=== PATIENT | female | born 1945 | race Caucasian/White ===

== ENCOUNTER 2017-08-29 18:01 | Observation (INO) | payer BC ==
[~2017-08-29] VITALS: Ht 167.6 cm; Wt 77.6 kg
[~2017-08-29 18:01] MED LIST: ALLOPURINOL100 MG PO; AMLODIPINE5 MG PO; ASPIRIN EC325 MG PO; ATORVASTATIN CA20 MG PO; BIOTIN5000 MC1 PO; BUPROPION150 M4 PO; CALCIUM PO; CILOSTAZOL100 MG PO; CLOPIDOGREL75 MG PO; FISH OIL1000 MG PO; LEVOTHYROXIN88 MC1 PO; LISINOPRIL20 MG PO; METOPROLOL TART50 MG PO; PREVACID30 M3 PO; PRILOSEC20 MG OR; [UNRECOGNIZED DRUG - OTHER] PO
[2017-08-29] MEDS ORDERED: ZETIA10 MG PO (18:34)
[2017-08-29] MEDS ORDERED: OXYCODONE HCL5 MG PO (18:35)
[2017-08-29 19:02] LABS: URINE BILIRUBIN - DIPSTICK NEGATIVE (NEGATIVE); URINE BLOOD DIPSTICK NEGATIVE (NEGATIVE); URINE COLOR YELLOW; URINE GLUCOSE - DIPSTICK NEGATIVE (NEGATIVE); URINE KETONE NEGATIVE (NEGATIVE); URINE LEUK ESTERASE NEGATIVE (NEGATIVE); URINE NITRITE - DIPSTICK NEGATIVE (Negative); URINE PROTEIN - DIPSTICK NEGATIVE (NEG-TRACE); URINE UROBILINOGEN - DIPSTICK 0.2 E.U./dL (0.2)
[2017-08-29 19:02] LABS: HEMATOCRIT 40.6 % (37.0-47.0); HEMOGLOBIN 13.5 g/dl (12.0-16.0); IMMATURE GRANULOCYTES 0.7 % (0.0-1.0); MEAN CELL VOLUME 85.3 fL CALC (80.0-100.0); MEAN CORPUSCULAR HGB 28.4 pG CALC (26.0-32.0); MEAN CORPUSCULAR HGB CONC 33.3 g/L CALC (32.0-36.0); NEUT# 8.78 thou/uL (2.00-7.15); RED BLOOD COUNT 4.76 mill/uL (4.20-5.60); RED CELL DISTRI WIDTH 14.2 % (11.5-15.5)
[2017-08-29 19:03] LABS: URINE CLARITY SL CLOUDY
[2017-08-29 19:10] LABS: ALBUMIN 4.6 g/dL (3.2-5.0); ALKALINE PHOSPHATASE 100 u/l (38-126); ANION GAP 13 (6-22 (CALC)); BILIRUBIN, TOTAL 0.6 mg/dL (0.0-1.4); BUN 20 mg/dL (8-23); BUN/CREATININE RATIO 27 (12-20 (CALC)); CARBON DIOXIDE 24 mmol/l (22-30); CHLORIDE 107 mmol/l (95-108); CREATININE 0.7 mg/dL (0.5-1.0); GFR > 60 ML/MIN (>=60 (CALC)); GFR FOR AFR.AMER. > 60 ML/MIN (>=60 (CALC)); LIPASE 81 u/l (23-300); POTASSIUM 4.2 mmol/l (3.5-5.1); SGOT/AST 39 u/l (9-36); SGPT/ALT 40 u/l (11-66); SODIUM 140 mmol/l (137-146)
[2017-08-29 19:11] LABS: TOTAL PROTEIN 7.9 g/dL (6.3-8.2)
[2017-08-29 19:22] LABS: MYOGLOBIN 26 ng/mL (0 - 62)
[2017-08-29 23:00] VITALS: BP 150/83
[2017-08-30 04:43] VITALS: BP 109/92
[2017-08-30 06:48] LABS: CHOLESTEROL HDL RATIO 1.9 (<4.4 (CALC))
[2017-08-30 08:18] VITALS: BP 117/65
[2017-08-30 12:32] VITALS: BP 115/50
[2017-08-30 16:00] VITALS: BP 100/51
[2017-08-30 20:05] VITALS: BP 97/53
[2017-08-31 00:18] VITALS: BP 94/56
[2017-08-31 04:25] VITALS: BP 103/52
[2017-08-31 08:47] VITALS: BP 104/51
[2017-08-31 12:00] VITALS: BP 102/55
== END 2017-08-31 15:20 | disposition home or self-care (01) | DRG 392 ==
LOC: ED 18:01 → ED-I 20:35 → ED 20:55 → MS2 20:56
PROVIDERS: Emergency Medicine; ADMIT Internal Medicine; ATTEND Internal Medicine
DX: R10.11 Right upper quadrant pain (principal); R10.13 Epigastric pain; N28.1 Cyst of kidney, acquired; I10 Essential (primary) hypertension; R09.02 Hypoxemia; I73.9 Peripheral vascular disease, unspecified; J44.9 Chronic obstructive pulmonary disease, unspecified; E03.9 Hypothyroidism, unspecified; M10.9 Gout, unspecified; K21.9 Gastro-esophageal reflux disease without esophagitis; I25.10 Atherosclerotic heart disease of native coronary artery without angina pectoris; E78.00 Pure hypercholesterolemia, unspecified; I25.2 Old myocardial infarction; Z95.5 Presence of coronary angioplasty implant and graft; Z95.1 Presence of aortocoronary bypass graft; Z87.891 Personal history of nicotine dependence; Z72.89 Other problems related to lifestyle
CPT/HCPCS: G0378

== ENCOUNTER 2019-01-09 14:29 | Emergency (ER) | payer BC ==
[~2019-01-09] VITALS: Ht 167.6 cm; Wt 85.0 kg
[~2019-01-09 14:29] MED LIST changes: -AMLODIPINE5 MG PO; +NORVASC5 M1 PO; +OXYCODONE HCL5 MG PO; +ZETIA10 MG PO
[2019-01-09 15:11] LABS: HEMATOCRIT 39.4 % (37.0-47.0); HEMOGLOBIN 13.3 g/dl (12.0-16.0); IMMATURE GRANULOCYTES 0.5 % (0.0-5.0); MEAN CELL VOLUME 83.7 fL CALC (80.0-100.0); MEAN CORPUSCULAR HGB 28.2 pG CALC (26.0-32.0); MEAN CORPUSCULAR HGB CONC 33.8 g/L CALC (32.0-36.0); NEUT# 4.54 thou/uL (2.00-7.15); RED BLOOD COUNT 4.71 mill/uL (4.20-5.60); RED CELL DISTRI WIDTH 13.2 % (11.5-15.5)
[2019-01-09 15:28] LABS: ALBUMIN 4.3 g/dL (3.2-5.0); ALKALINE PHOSPHATASE 88 u/l (38-126); ANION GAP 12 (6-22 (CALC)); BILIRUBIN, TOTAL 0.5 mg/dL (0.0-1.4); BUN 14 mg/dL (8-23); BUN/CREATININE RATIO 19 (12-20 (CALC)); CARBON DIOXIDE 23 mmol/l (22-30); CHLORIDE 110 mmol/l (95-108); CREATININE 0.7 mg/dL (0.5-1.0); GFR > 60 ML/MIN (>=60 (CALC)); GFR FOR AFR.AMER. > 60 ML/MIN (>=60 (CALC)); POTASSIUM 3.7 mmol/l (3.5-5.1); SGOT/AST 23 u/l (9-36); SODIUM 142 mmol/l (137-146); TOTAL PROTEIN 7.3 g/dL (6.3-8.2)
[2019-01-09] MEDS ORDERED: HYDRALAZINE10 MG PO (16:40)
[2019-01-09 17:48] VITALS: BP 176/74
== END 2019-01-09 17:59 | disposition home or self-care (01) | DRG 93 ==
LOC: ED 14:29
DX: R20.2 Paresthesia of skin (principal); I10 Essential (primary) hypertension; Z95.1 Presence of aortocoronary bypass graft

== ENCOUNTER 2019-10-12 06:43 | Day surgery (SDC) | payer BC ==
[~2019-10-12] VITALS: Ht 167.6 cm; Wt 80.3 kg
[~2019-10-12 06:43] MED LIST changes: +ASPIRIN81 MG PO; +CARAFATE1 GM PO; +HYDRALAZINE10 MG PO; +LEVOTHYROXIN50 MCG PO; +LIPITOR40 M1 PO; +METFORMIN500 M2 PO; +NORVASC PO; +PLAVIX75 MG PO; +PROTONIX40 M2 PO; +WELLBUTRIN150 M1 PO
[2019-10-12 09:08] VITALS: BP 132/63
== END 2019-10-12 09:25 | disposition home or self-care (01) | DRG 392 ==
LOC: ORM 06:43
PROVIDERS: ATTEND Surgery
PROC: 0DB78ZX Excision of Stomach, Pylorus, Via Natural or Artificial Opening Endoscopic, Diagnostic (ICD-10-PCS; principal; 2019-10-12)
DX: K29.50 Unspecified chronic gastritis without bleeding (principal); K44.9 Diaphragmatic hernia without obstruction or gangrene; I10 Essential (primary) hypertension; Z95.1 Presence of aortocoronary bypass graft; Z95.5 Presence of coronary angioplasty implant and graft; Z79.899 Other long term (current) drug therapy; Z11.59 Encounter for screening for other viral diseases

== ENCOUNTER 2021-07-16 16:21 | Emergency (ER) | payer OTHER, MEDICARE ==
[~2021-07-16] VITALS: Ht 167.6 cm; Wt 88.0 kg
[2021-07-16 18:37] VITALS: BP 188/74
== END 2021-07-16 18:49 | disposition home or self-care (01) | DRG 605 ==
LOC: ED 16:21
DX: S00.03XA Contusion of scalp, initial encounter (principal); I10 Essential (primary) hypertension; W20.8XXA Other cause of strike by thrown, projected or falling object, initial encounter; Y93.89 Activity, other specified; Y92.89 Other specified places as the place of occurrence of the external cause; Y99.0 Civilian activity done for income or pay; Z95.5 Presence of coronary angioplasty implant and graft; Z95.1 Presence of aortocoronary bypass graft